=== PATIENT | female | born 1965 ===

== ENCOUNTER 2022-01-16 11:44 | Outpatient (CLI) | payer BC | END 2022-01-16 11:45 | disposition home or self-care (01) | LOC: BICMAMMO 11:44 | PROVIDERS: ATTEND Nurse Practitioner Family | DX: Z12.31 Encounter for screening mammogram for malignant neoplasm of breast (principal); Z80.3 Family history of malignant neoplasm of breast | CPT/HCPCS: 77063; 77067 ==

== ENCOUNTER 2022-01-16 12:42 | Outpatient (CLI) | payer BC | END 2022-01-16 12:43 | disposition home or self-care (01) | LOC: TBSIIMAG 12:42 | PROVIDERS: ATTEND Nurse Practitioner Family | DX: D32.0 Benign neoplasm of cerebral meninges (principal) | CPT/HCPCS: 70553 ==